=== PATIENT | male | born 1960 | race Caucasian/White ===

== ENCOUNTER 2024-06-24 07:34 | Day surgery (SDC) | payer MEDICARE, OTHER ==
[2024-06-24] MEDS ORDERED: Midazolam 1 MG/ML 2 ML SDV ONE (07:42)
[2024-06-24] MEDS ORDERED: fentaNYL 100 MCG/2 ML SDV ONE (07:42)
[2024-06-24] MEDS ORDERED: Propofol 200 MG/20 ML SDV ONE ×2 (07:42→09:57)
[2024-06-24] MEDS: Lactated Ringers 1,000 ML IV SCH (08:13)
== END 2024-06-24 10:50 | disposition home or self-care (01) ==
LOC: JP.SDS 07:34
PROVIDERS: ATTEND Surgery
DX: Z12.11 Encounter for screening for malignant neoplasm of colon (principal); K57.30 Diverticulosis of large intestine without perforation or abscess without bleeding; I10 Essential (primary) hypertension; E11.9 Type 2 diabetes mellitus without complications
CPT/HCPCS: G0121; J2250; J2704; J3010; J7120; 00812-QZ